=== PATIENT | female | born 1985 | race Caucasian/White ===

== ENCOUNTER 2019-04-13 10:01 | Day surgery (SDC) | payer OTHER ==
[2019-04-12 12:19] VITALS: BMI 31.1
[2019-04-13] MEDS ORDERED: MIDAZOLAM HCL 2 MG/2 ML SINGLE DOSE VIAL ONE (10:11)
[2019-04-13] MEDS ORDERED: PROPOFOL 20 ML ONE ×2 (10:12→11:38)
[2019-04-13] MEDS ORDERED: TRIAMCINOLONE ACET 40MG/1ML VIAL ONE (10:30)
[2019-04-13] MEDS ORDERED: BUPIVACAINE HCL/PF 0.25% (2.5MG/ML) 10 ML VIAL ONE (10:31)
[2019-04-13] MEDS ORDERED: LIDOCAINE HCL 1%, 10 MG/ML (20ML VIAL) ONE (10:31)
[2019-04-13] MEDS ORDERED: BETAMET ACET/BETAMET NA PH 30 MG/5 ML VIAL ONE (10:34)
[2019-04-13] MEDS ORDERED: methylPREDNISolone ACET (DEPO) 40 MG/1 ML VIAL ONE (10:34)
[2019-04-13] MEDS ORDERED: BUPIVACAINE HCL/PF 0.5% (5 MG/ML) 30 ML VIAL IJ ONE ×2 (10:48→11:31)
[2019-04-13] MEDS ORDERED: ONDANSETRON 4 MG/2 ML VIAL IVPUSH PRN (11:05)
[2019-04-13] MEDS ORDERED: ACETAMINOPHEN 325 MG TABLET (FP) PO PRN (11:05)
[2019-04-13] MEDS ORDERED: oxyCODONE HCL 5 MG TABLET PO PRN (11:05)
[2019-04-13] MEDS ORDERED: LIDOCAINE HCL 1%, 10 MG/ML (20ML VIAL) NR ONE (11:31)
[2019-04-13] MEDS ORDERED: DEXAMETHASONE SOD PHOSPHATE 4 MG/1 ML VIAL IVPUSH ONE (11:31)
[2019-04-13] MEDS ORDERED: IOHEXOL 180 MG/1 ML ML IJ ONE (11:32)
[2019-04-13 14:25] VITALS: BP 98/57; PULSE 62; TEMP 97.6
--- NOTE | 2019-04-19 23:14 | PROC ---
Procedure Note Procedure: Date of service: 04/13/2019 Preoperative Diagnosis: Low back pain and lumbarFacet arthropathy on right / Left Postoperative Diagnosis: Same Procedure Performed: Lumbar Facet Blocks Diagnostic ) on Right / Left L3-4/L4-5 / L5-S1 with dye under Fluoroscopy Anesthesia: Local / MAC Anesthesiologist: Procedure: I discussed with the patient in detail about the risks, benefits and alternatives to treatment not only limited to infection, headache, numbness, weakness and injury to nerves, spinal cord, blood vessels and muscles. The patient understood, agreed and signed the written consent. The patient was placed in the prone position with the head, abdomen and legs supported with the pillows. The patients lower back was prepped and draped in a sterile fashion. Under C-arm and Scottie dog view eye was identified the L2-3, L3-4 and L4-5 levels on Right side. At the level of L3-4 (L3), 2 ml of 2% Lidocaine was infiltrated into the skin and subcutaneous tissue. A 3.5 inch #23 guage spinal needle was used to approach the eye of the Scottie dog in the oblique view until the tip of the needle contacted the bone with the use of intermittent fluoroscopy. Needle placement was confirmed both in the AP and oblique view. Aspiration was done which was negative for blood. 0.20 ml of dye omnipaque was injected to see the spread of the dye. A solution of 0.5 ml of preservative free 0.5% Marcaine was injected at this level. While the needle was withdrawn 1 ml of 2% Lidocaine was infiltrated. Similar procedure was repeated at left/ Right L4-5 (L4) and L5-S1 (L5) and Left L3-4level. The patient tolerated the procedure well. Bleeding was checked. There were no immediate complications. The patient was observed and asked about pain level. The patient mentioned that there was improvement was more than 50%. The patient was told to apply ice at the injection sites. If there is any problem, call my office or report to the ER . Patient was discharged as per [facility] criteria. Moy Macario M.D.
== END 2019-04-13 13:30 | disposition home or self-care (01) ==
LOC: JASU-SURG 10:01
PROVIDERS: ATTEND Physical Medicine & Rehabilitation
PROC: 3E0T33Z Introduction of Anti-inflammatory into Peripheral Nerves and Plexi, Percutaneous Approach (ICD-10-PCS; 2019-04-13)
PROC: BR16YZZ Fluoroscopy of Lumbar Facet Joint(s) using Other Contrast (ICD-10-PCS; 2019-04-13)
PROC: 3E0T3BZ Introduction of Anesthetic Agent into Peripheral Nerves and Plexi, Percutaneous Approach (ICD-10-PCS; principal; 2019-04-13 11:00)
DX: M46.97 Unspecified inflammatory spondylopathy, lumbosacral region (principal); M54.5 Low back pain
CPT/HCPCS: 76000-TC-FY; 84703

== ENCOUNTER 2019-06-08 08:30 | Day surgery (SDC) | payer OTHER ==
[2019-06-07 12:12] VITALS: BMI 31.4
[2019-06-08] MEDS ORDERED: PROPOFOL 20 ML ONE ×2 (10:13)
[2019-06-08] MEDS ORDERED: MIDAZOLAM HCL 2 MG/2 ML SINGLE DOSE VIAL ONE (10:13)
[2019-06-08] MEDS ORDERED: LIDOCAINE HCL 1%, 10 MG/ML (50 mL VIAL) IJ ONE ×2 (10:58)
[2019-06-08] MEDS ORDERED: BETAMET ACET/BETAMET NA PH 30 MG/5 ML VIAL IJ ONE (10:58)
[2019-06-08] MEDS ORDERED: IOHEXOL 180 MG/1 ML ML IJ ONE ×2 (10:58)
[2019-06-08] MEDS ORDERED: BUPIVACAINE HCL/PF 0.5% (5MG/ML) 10 ML VIAL IJ ONE (10:58)
[2019-06-08 12:45] VITALS: TEMP 97.6
[2019-06-08 13:01] VITALS: BP 103/67; PULSE 64
--- NOTE | 2019-06-14 00:14 | PROC ---
Procedure Note Procedure: Date of service: 06/08/2019 Preoperative Diagnosis: Low back pain and lumbar Facetarthropathy. on right / Left Postoperative Diagnosis: Same Procedure Performed: Bilateral Lumbar Facet Intra-articular steroid injection on Right / Left L3-4/ L4-5/ L5-S1 with dye under Fluoroscopy Anesthesia: Local / MAC Anesthesiologist: Procedure: I discussed with the patient in detail about the risks, benefits and alternatives to treatment not only limited to infection, headache, numbness, weakness and injury to nerves, spinal cord, blood vessels and muscles. The patient understood, agreed and signed the written consent. The patient was placed in the prone position with the head, abdomen an and legs supported with the pillows. The patients lower back was prepped and draped in a sterile fashion. Under C-arm and Facet joints are identified at the L2-3, L3-4 and L4- 5 levels on Left /Right side. At the level of L3-4 facet joint on left 2 ml of 1% Lidocaine was infiltrated into the skin and subcutaneous tissue. A 5 inch #22 guage spinal needle was used to approach the facet joint in the oblique view until the tip of the needle with the use of intermittent fluoroscopy. Needle placement was confirmed both in the AP and oblique view. Aspiration was done which was negative for blood. 1 ml of the solution ( containing 5 ml of 5 ml of 0.5 % marcaine and 1 ml of Celestone ) was injected into the facet joint. While the needle was withdrawn 1 ml of 1% Lidocaine was infiltrated. Similar procedure was repeated at left/ Right L4-5 and L5-S1 and Right L3-4 facet joints. The patient tolerated the procedure well. Bleeding was checked. There were no immediate complications. The patient was observed and asked about pain level. The patient mentioned that there was improvement was more than 90%. The patient was told to apply ice at the injection sites. If there is any problem, call my office or report to the ER . The patient was discharged as per [facility] criteria. Moy Macario M.D.
== END 2019-06-08 12:45 | disposition home or self-care (01) ==
LOC: JASU-SURG 08:30
PROVIDERS: ATTEND Physical Medicine & Rehabilitation
PROC: 3E0T33Z Introduction of Anti-inflammatory into Peripheral Nerves and Plexi, Percutaneous Approach (ICD-10-PCS; 2019-06-08)
PROC: BR16YZZ Fluoroscopy of Lumbar Facet Joint(s) using Other Contrast (ICD-10-PCS; 2019-06-08)
PROC: 3E0T3BZ Introduction of Anesthetic Agent into Peripheral Nerves and Plexi, Percutaneous Approach (ICD-10-PCS; principal; 2019-06-08 09:30)
DX: M46.86 Other specified inflammatory spondylopathies, lumbar region (principal); M54.5 Low back pain
CPT/HCPCS: 76000-TC-FY; 84703; 94760